=== PATIENT | female | born 1965 | race Asian ===

== ENCOUNTER 2019-12-11 18:11 | Inpatient (IN) | payer MEDICAID ==
[~2019-12-11] VITALS: Ht 165.1 cm; Wt 70.3 kg
[2019-12-11 21:35] VITALS: BP 160/102
[2019-12-11] MEDS ORDERED: LOSA50TA3 PO (22:00)
[2019-12-11] MEDS ORDERED: METO25TA6 PO (22:00)
[2019-12-11] MEDS ORDERED: PRED20TA PO (22:00)
[2019-12-11] MEDS ORDERED: CALC0.258 PO (22:00)
[2019-12-11] MEDS ORDERED: CALC667T2 PO (22:00)
[2019-12-11] MEDS ORDERED: NIFE60TA73 PO (22:00)
[2019-12-11] MEDS ORDERED: PANT40TA2 PO (22:00)
[2019-12-12] VITALS: BP 155/99
[2019-12-12] MEDS ORDERED: ACETAMINOPHEN 325 MG TABLET PO PRN
[2019-12-12] MEDS ORDERED: MAGNESIUM HYDROXIDE 30 ML UDC PO PRN
[2019-12-12] MEDS ORDERED: Z GUARD REMEDY 2 OZ OINT TP PRN
[2019-12-12] MEDS ORDERED: MAG HYDROX/AL HYDROX/SIMETH 30 ML UDC PO PRN
[2019-12-12] MEDS ORDERED: ONDANSETRON HCL/PF 4 MG/2 ML VIAL IVP PRN
[2019-12-12] MEDS ORDERED: ZOLPIDEM TARTRATE 5 MG TABLET PO PRN
[2019-12-12 04:00] VITALS: BP 147/97
--- NOTE | 2019-12-12 06:15 | NUR ---
GLASS VIAL BENDING CONVEYOR FEEDER NOTES AWAKE & RESPONSIVE. NOT IN ANY DISTRESS. NO SOB NOTED. DENIES ANY PAIN OR DISCOMFORT AT THIS TIME. ON TELE SR @ 64 WITH IV-HL PATENT & INTACT. MONITORED ACCORDINGLY. CALL LIGHT WITHIN REACH. BED IN LOWEST POSITION. SR UP X 2 FOR SAFETY. WILL ENDORSE TO NEXT SHIFT.
[2019-12-12 06:42] LABS: BASOPHILS # (AUTO) 0.1 /CMM (0.0-0.2); BASOPHILS % (AUTO) 0.7 % (0.0-2.0); EOSINOPHILS % (AUTO) 0.6 % (0.0-6.0); HEMATOCRIT 32 % (33-45); HEMOGLOBIN 10.7 g/dL (11.5-14.8); LYMPHOCYTES # (AUTO) 2.5 /CMM (0.8-4.8); LYMPHOCYTES % (AUTO) 20.2 % (20.0-44.0); MEAN CORPUSCULAR HGB CONC 34 g/dl (31.0-36.0); MEAN CORPUSCULAR VOLUME 92 fL (82-100); MONOCYTES # (AUTO) 1.1 /CMM (0.1-1.30); NEUTROPHILS # (AUTO) 8.5 /CMM (1.8-8.9); NEUTROPHILS % (AUTO) 69.5 % (43.0-81.0); PLATELET COUNT (AUTO) 277 /CMM (150-450); RED BLOOD CELL COUNT(AUTO) 3.45 MIL/uL (4.0-5.2); WHITE BLOOD COUNT (AUTO) 12.2 K/uL (4.3-11.0)
[2019-12-12 07:00] LABS: CALCIUM, SERUM 8.5 mg/dL (8.5-10.1); CREATININE 5.9 mg/dL (0.6-1.3); MAGNESIUM 1.8 mg/dL (1.8-2.4); PHOSPHORUS 5.6 mg/dL (2.5-4.9); POTASSIUM 5.1 mmol/L (3.5-5.1)
[2019-12-12] MEDS ORDERED: REGADENOSON 0.4 MG/5 ML DISP.SYRIN IVP ONE (07:30)
--- NOTE | 2019-12-12 07:45 | NUR ---
CARDIAC STRESS TEST RECEIVED CONSENT FOR CARDIAC STRESS TEST FROM PT. PT AOX4. KEPT PT NPO. DR COOK HERE AND SAW PT.
--- NOTE | 2019-12-12 08:00 | NUR ---
CHILDREN TEACHER OPENING NOTES RECEIVED PT IN BED, AWAKE, ALERT & AND ORIENTED X 4. RESPONSIVE. NO CARDIAC OR RESP DISTRESS NOTED. N NO SOB NOTED. ON CARDIAC TELE MONITOR WITH NSR. DENIES ANY PAIN OR DISCOMFORT AT THIS TIME. OIV ACCESS NOTED ON R AC G20. FLUSHING WELL. INTACT AND PATENT. PT HAS A PERMACATH ON R CHEST SHE STATES ITS FOR HEMODIALYSIS. SAFETY PRECAUTIONS IN PLACE. CALL LIGHT WITHIN REACH. BED IN LOCKED AND LOWEST POSITION. SR UP X 2 FOR SAFETY.
[2019-12-12] MEDS: HYDROCODONE/APAP 5/325MG 1 EACH TABLET PO PRN (08:26)
[2019-12-12] MEDS: NIFEdipine XL 60 MG TAB PO SCH ×2 (08:26→16:28)
--- NOTE | 2019-12-12 08:45 | NUR ---
PICKED UP FOR STRESS TEST PT LEFT UNIT FOR CARDIAC STRESS TEST.
[2019-12-12] MEDS: predniSONE 20 MG TABLET PO SCH ×2 (08:54→16:28)
[2019-12-12] MEDS ORDERED: METOPROLOL TARTRATE 25 MG TABLET PO SCH (09:00)
[2019-12-12] MEDS ORDERED: CALCIUM ACETATE 667 MG TABLET PO SCH (09:00)
[2019-12-12] MEDS ORDERED: LOSARTAN POTASSIUM 50 MG TABLET PO SCH (09:00)
[2019-12-12] MEDS ORDERED: PANTOPRAZOLE 40 MG TABLET.DR PO SCH (09:00)
[2019-12-12] MEDS ORDERED: CALCITRIOL 0.25 MCG CAPSULE PO SCH (09:00)
--- NOTE | 2019-12-12 13:00 | NUR ---
came back from stress test pt came back from 2nd round of stress test in stable condition
--- NOTE | 2019-12-12 14:00 | NUR ---
STRESS TEST CLEAR PER DR PEREYRA STRESS TEST CLEAR. SERGE AYON MADE AWARE.
[2019-12-12 16:00] VITALS: BP 152/96
--- NOTE | 2019-12-12 18:00 | NUR ---
PT WANTS TO GO HOME PER PT SHE WANTS TO GO HOME. NOTIFIED PILAR REVIEW SPECIALIST, PER SERGE, SHE WANTS PT MONITORED TONIGHT THEN WILL D/C SARAH AM. PER SERGE, SHE WILL DC PT AT AROUND 730 AM.
--- NOTE | 2019-12-12 18:20 | NUR ---
SERVICE AND REPAIR SUPERVISOR CLOSING NOTES PT IN BED AWAKE & RESPONSIVE. AOX4. NO CARDIAC OR RESP DISTYRESS NOTED. NO SOB NOTED. DENIES ANY PAIN OR DISCOMFORT AT THIS TIME. ON TELE SR @ 64 WITH IV-HL ON R AC G20. FLUSHING WELL. INTACT AND PATENT. NO S/S OF INFECTION OR INFILTRATION NOTED. MONITORED ACCORDINGLY. CALL LIGHT WITHIN REACH. BED IN LOWEST POSITION. SR UP X 2 FOR SAFETY. WILL ENDORSE TO NEXT SHIFT.
[2019-12-12 20:00] VITALS: BP 128/77
[2019-12-13] VITALS: BP 127/92
[2019-12-13 04:00] VITALS: BP 129/80
--- NOTE | 2019-12-13 06:23 | NUR ---
EVICTION SPECIALIST NOTES AWAKE & RESPONSIVE. NOT IN ANY DISTRESS. NO SOB NOTED. DENIES ANY PAIN OR DISCOMFORT AT THIS TIME. ON TELE SR @ 76 WITH IV-HL PATENT & INTACT. MONITORED ACCORDINGLY. CALL LIGHT WITHIN REACH. BED IN LOWEST POSITION. SR UP X 2 FOR SAFETY. WILL ENDORSE TO NEXT SHIFT.
[2019-12-13 06:59] LABS: BASOPHILS # (AUTO) 0.1 /CMM (0.0-0.2); BASOPHILS % (AUTO) 0.5 % (0.0-2.0); EOSINOPHILS % (AUTO) 0.1 % (0.0-6.0); HEMATOCRIT 34 % (33-45); HEMOGLOBIN 11.5 g/dL (11.5-14.8); LYMPHOCYTES # (AUTO) 1.3 /CMM (0.8-4.8); LYMPHOCYTES % (AUTO) 10.9 % (20.0-44.0); MEAN CORPUSCULAR HGB CONC 34 g/dl (31.0-36.0); MEAN CORPUSCULAR VOLUME 91 fL (82-100); MONOCYTES # (AUTO) 0.7 /CMM (0.1-1.30); MONOCYTES % (AUTO) 5.6 % (2.0-12.0); NEUTROPHILS # (AUTO) 9.8 /CMM (1.8-8.9); NEUTROPHILS % (AUTO) 82.9 % (43.0-81.0); PLATELET COUNT (AUTO) 312 /CMM (150-450); RED BLOOD CELL COUNT(AUTO) 3.72 MIL/uL (4.0-5.2); WHITE BLOOD COUNT (AUTO) 11.8 K/uL (4.3-11.0)
[2019-12-13 07:03] LABS: APPEARANCE,URINE CLEAR (CLEAR); BILIRUBIN,URINE NEGATIVE (NEGATIVE); BLOOD, URINE NEGATIVE Ery/uL (NEGATIVE); COLOR,URINE YELLOW (YELLOW); KETONES,URINE NEGATIVE (NEGATIVE); LEUKOCYTE ESTERASE ,URINE NEGATIVE (NEGATIVE); NITRITE, URINE NEGATIVE (NEGATIVE); PROTEIN,URINE 100 mg/dl (NEGATIVE); UGLUCOSE 100 MG/DL mg/dL (NEGATIVE); UROBILINOGEN,URINE 0.2 EU/dL (0.2)
[2019-12-13 07:14] LABS: RBC,URINE NONE SEEN /HPF (0-2)
[2019-12-13 07:15] LABS: CREATININE 7.5 mg/dL (0.6-1.3); POTASSIUM 5.6 mmol/L (3.5-5.1)
[2019-12-13 07:15] LABS: BACTERIA,URINE None seen /HPF (None Seen); SQUAMOUS EPITHELIAL CELL,UR Few /HPF (None Seen); WBC,URINE NONE SEEN /HPF (0-3)
[2019-12-13 07:18] LABS: MAGNESIUM 2.2 mg/dL (1.8-2.4); PHOSPHORUS 5.7 mg/dL (2.5-4.9)
[2019-12-13] MEDS: HYDROCODONE/APAP 5/325MG 1 EACH TABLET PO PRN (07:45)
--- NOTE | 2019-12-13 08:00 | NUR ---
D/C HOME PT WAS DISCHARGE HOME AT 8AM. PER SERGE LAI TO D/C PT. PT IN STABLE CONDITION. VS NOTED AT 156/93, 83, 98.3, 18, 99% RA. PT IN STABLE CONDITION. ALL D/C INSTRUCTIONS PROVIDED TO PT IN LAYMENS TERM. ADVAISED PT TO F/U WITH CARDIO AND PCP IN 1 WEEK. PT WAS PICKED UP BY AND SON;.
== END 2019-12-13 08:10 | disposition home or self-care (01) | DRG 203 ==
LOC: TELE1 21:25 → TELE 21:49
PROVIDERS: ADMIT Registered Nurse; ATTEND Registered Nurse
DX: R07.89 Other chest pain (principal); I12.0 Hypertensive chronic kidney disease with stage 5 chronic kidney disease or end stage renal disease; E87.70 Fluid overload, unspecified; N18.6 End stage renal disease; D63.1 Anemia in chronic kidney disease; D72.829 Elevated white blood cell count, unspecified; Z99.2 Dependence on renal dialysis
CPT/HCPCS: 36415; 80048-TC; 80061-TC; 81000-TC; 83735-TC; 84100-TC; 84484-TC; 84703-TC; 85025-TC; 85610-TC; 85730-TC; 86706; 87081-TC; 87340; 93307-TC; A9502; G0378; J2785